=== PATIENT | male | born 1975 | race Caucasian/White ===

== ENCOUNTER → 2018-12-22 | Outpatient (CLI) | payer BC ==
[~2018-12-22] MED LIST: CYCL-97; HYDR-34; NAPR550T; TEST200V3
--- NOTE | 2018-12-22 18:05 | Diagnostic Imaging Report ---
INDICATION: Wrist pain. TIME OF EXAM: 2:41 p.m. FINDINGS: Distal radius and ulna are intact. There is mild ulna-minus variant present, a normal variant. The carpus is unremarkable. No fractures are seen. There is 3 mm, linear metallic density identified in the soft tissues adjacent to the distal ulna medially. No other radiopaque soft tissue foreign bodies are seen. IMPRESSION: 1. No acute bony abnormality is detected. 2. Metallic foreign body identified in the soft tissues adjacent to the distal ulna. Dictated by: Dictated on workstation # [id number]
== END ==
LOC: RAD 14:35
PROVIDERS: ATTEND Family Medicine
DX: S60.851A Superficial foreign body of right wrist, initial encounter (principal)
CPT/HCPCS: 73110